=== PATIENT | male | born 1950 | race African-American/Black ===

== ENCOUNTER → 2016-06-25 | Outpatient (CLI) | payer MEDICARE, OTHER | LOC: RAD 09:17 | PROVIDERS: ATTEND Family Medicine | DX: K22.2 Esophageal obstruction (principal) | CPT/HCPCS: 74220 ==

== ENCOUNTER 2017-06-06 08:06 | Emergency (ER) | payer MEDICARE, OTHER ==
--- NOTE | 2017-06-06 08:51 | ER Document Report ---
ED General - General Chief Complaint: Abdominal Pain Stated Complaint: STOMACH PAIN Time Seen by Provider: 06/06/17 08:38 Mode of Arrival: Medic Information source: Patient TRAVEL OUTSIDE OF THE [place] IN LAST 30 DAYS: No - HPI Patient complains to provider of: "I am good now and go home" Notes: Patient states approximately 730 this morning he was in the shower when he got mid abdominal pain that lasted approximately 15 minutes. He did have a normal bowel movement and it resolved after that. Patient states he was sweaty with the pain and afterward so his made him come in here for evaluation. Patient states he is pain-free and he has no complaints currently - Related Data Allergies/Adverse Reactions: No Known Allergies Allergy (Verified 06/06/17 08:08) Past Medical History - General Information source: Patient - Social History Smoking Status: Never Smoker Frequency of alcohol use: None Drug Abuse: None Occupation: Retired Lives with: Family Family History: Hypertension Patient has suicidal ideation: No Patient has homicidal ideation: No - Past Medical History Cardiac Medical History: Reports: Hx Heart Attack - 1998, Hx Hypertension Pulmonary Medical History: Reports: None EENT Medical History: Reports: None Neurological Medical History: Reports: None Endocrine Medical History: Reports: None Renal/ Medical History: Reports: None Malignancy Medical History: Reports None GI Medical History: Reports: None Musculoskeltal Medical History: Reports None Skin Medical History: Reports None Psychiatric Medical History: Reports: None Traumatic Medical History: Reports: None Infectious Medical History: Reports: None Surgical Hx: Negative - Immunizations Immunizations up to date: Yes History of Influenza Vaccine for 02/2017 - 07/2017 Season: Yes Review of Systems - Review of Systems Constitutional: No symptoms reported EENT: No symptoms reported Cardiovascular: No symptoms reported Respiratory: No symptoms reported Gastrointestinal: No symptoms reported Genitourinary: No symptoms reported Male Genitourinary: No symptoms reported Musculoskeletal: No symptoms reported Skin: No symptoms reported Hematologic/Lymphatic: No symptoms reported Neurological/Psychological: No symptoms reported Physical Exam - Vital signs Vitals: Temp Pulse Resp BP Pulse Ox 98.0 F 72 15 112/57 L 97 06/06/17 08:10 06/06/17 08:10 06/06/17 08:10 06/06/17 08:10 06/06/17 08:10 - Notes Notes: PHYSICAL EXAMINATION: GENERAL: Well-appearing, well-nourished and in no acute distress. HEAD: Atraumatic, normocephalic. EYES: Pupils equal round and reactive to light, extraocular movements intact, sclera anicteric, conjunctiva are normal. ENT: Nares patent, oropharynx clear without exudates. Moist mucous membranes. TMs within normal limits bilaterally NECK: Normal range of motion, supple without lymphadenopathy LUNGS: Breath sounds clear to auscultation bilaterally and equal. No wheezes rales or rhonchi. HEART: Regular rate and rhythm without murmurs ABDOMEN: Soft, nontender, nondistended abdomen. No guarding, no rebound. No masses appreciated. Musculoskeletal: Normal range of motion, no pitting or edema. No cyanosis. NEUROLOGICAL: Cranial nerves grossly intact. Normal speech, normal gait. Normal sensory, motor exams PSYCH: Normal mood, normal affect. SKIN: Warm, Dry, normal turgor, no rashes or lesions noted. Course - Re-evaluation Re-evalutation: 06/06/17 10:11 Patient's was in the room. I did review all the lab work.I did go over the the reasons to return as on his discharge papers. Patient had no abdominal pain his vital signs are stable. - Vital Signs Vital signs: Temp Pulse Resp BP Pulse Ox 98.0 F 72 15 112/57 L 97 06/06/17 08:10 06/06/17 08:10 06/06/17 08:10 06/06/17 08:10 06/06/17 08:10 - Laboratory Result Diagrams: 06/06/17 09:10 06/06/17 09:10 Laboratory results interpreted by me: 06/06/17 06/06/17 06/06/17 09:10 09:10 09:10 WBC 11.2 H RDW 14.8 H Seg Neutrophils % 78.7 H Lymphocytes % 12.5 L Absolute Neutrophils 8.8 H Creatinine 1.39 H Est GFR (Non-Af Amer) 51 L Glucose 126 H Urine Protein 30 H Urine Blood SMALL H Urine Urobilinogen 2.0 H Ur Leukocyte Esterase SMALL H - EKG Interpretation by De EKG shows normal: Sinus rhythm - arrythmia 60-87 When compared to previous EKG there are: Previous EKG unavailable Additional EKG results interpreted by me: 06/06/17 09:21 TWI iii Discharge - Discharge Clinical Impression: Abdominal pain Condition: Stable Disposition: HOME, SELF-CARE Instructions: Abdominal Pain ([facility]) Additional Instructions: Return to the emergency department if your pain returns,You have intractable nausea vomiting diarrhea, fevers,Or any other concerns. Please call your primary medical doctor for follow-up on Thursday.
[2017-06-06 09:43] LABS: ABSOLUTE EOSINOPHILS # (AUTO) 0.1 10^3/uL (0.0-0.6); ABSOLUTE LYMPHOCYTES (AUTO) 1.4 10^3/uL (0.5-4.7); ABSOLUTE MONOCYTES (AUTO) 0.9 10^3/uL (0.1-1.4); ABSOLUTE NEUT (AUTO) 8.8 10^3/uL (1.7-8.2); BASOPHILS % (AUTO) 0.4 % (0-2); EOSINOPHILS % (AUTO) 0.7 % (0-6); HEMATOCRIT 43.5 % (37.9-51.0); HEMOGLOBIN 14.9 g/dL (13.5-17.0); LYMPHOCYTES % (AUTO) 12.5 % (13-45); MEAN CORPUSCULAR HEMOGLOBIN 28.9 pg (27.0-33.4); MEAN CORPUSCULAR HGB CONC 34.3 g/dL (32.0-36.0); MEAN CORPUSCULAR VOLUME 84 fl (80-97); MONOCYTES % (AUTO) 7.7 % (3-13); PLATELET COUNT 225 10^3/uL (150-450); RED BLOOD COUNT 5.16 10^6/uL (4.35-5.55); RED CELL DISTRIBUTION WIDTH 14.8 % (11.5-14.0); SEGMENTED NEUTROPHILS % (AUTO) 78.7 % (42-78); TOTAL CELLS COUNTED % (AUTO) 100 %; WHITE BLOOD COUNT 11.2 10^3/uL (4.0-10.5)
[2017-06-06 09:44] LABS: APPEARANCE,URINE SLIGHTLY-CLOUDY; BILIRUBIN,URINE NEGATIVE (NEGATIVE); COLOR,URINE AMBER; GLUCOSE, URINE NEGATIVE (NEGATIVE); KETONES,URINE NEGATIVE (NEGATIVE); LEUKOCYTE ESTERASE,URINE SMALL (NEGATIVE); NITRITE,URINE NEGATIVE (NEGATIVE); PROTEIN,URINE 30 mg/dL (NEGATIVE); URINE SPECIFIC GRAVITY 1.023
[2017-06-06 09:55] LABS: ALANINE AMINOTRANSFERASE 34 U/L (21-72); ALBUMIN 4.3 g/dL (3.5-5.0); ALKALINE PHOSPHATASE 82 U/L (38-126); ANION GAP 10 (5-19); ASPARTATE AMINO TRANSFERASE 22 U/L (17-59); BILIRUBIN,DIRECT 0.2 mg/dL (0.0-0.4); BILIRUBIN,TOTAL 0.6 mg/dL (0.2-1.3); BLOOD UREA NITROGEN 15 mg/dL (7-20); CARBON DIOXIDE 27 mmol/L (22-30); CHLORIDE 105 mmol/L (98-107); GLUCOSE 126 mg/dL (75-110); POTASSIUM 4.5 mmol/L (3.6-5.0); SODIUM 141.9 mmol/L (137-145); TOTAL PROTEIN 7.3 g/dL (6.3-8.2)
--- NOTE | 2017-06-06 10:17 | EKG REPORT ---
SEVERITY:- OTHERWISE NORMAL ECG - SINUS ARRHYTHMIA, RATE 60-87 : Confirmed by: Carleen Balderrama 06-Jun-2017 10:16:43
[2017-06-06 11:10] VITALS: BP 115/76
== END 2017-06-06 11:01 | disposition home or self-care (01) ==
LOC: ER 08:06
DX: R10.9 Unspecified abdominal pain (principal); R61 Generalized hyperhidrosis; I25.2 Old myocardial infarction
CPT/HCPCS: 36415; 80053; 81001; 83690; 85025; 93005; 93010; 99284